=== PATIENT | female | born 1990 | race Caucasian/White ===

== ENCOUNTER 2024-11-25 08:33 | Emergency (ER) | payer OTHER ==
[~2024-11-25] VITALS: Ht 160 cm; Wt 73.0 kg
--- OUTSIDE RECORDS SUMMARY | ~2024-11-25 | XMS | Continuity of Care Document ---
Demographics + + + | Address | [address] | | | [place] [address] | + + + | Preferred Language | Unknown | + + + | Marital Status | unknown | + + + | Restorationist Affiliation | Unknown | + + + | Race | White | + + + | Ethnic Group | Not or | + + + Author + + + | Author | [facility] | + + + | Organization | [facility] | + + + | Address | [address] | | | [place] [address] | + + + | Phone | | + + + Care Team Providers + + + + | Care Personnel Analyst Name | Role | Phone | + + + + Unavailable | Unavailable | + + + + Unavailable | Unavailable | + + + + Allergies No information. Encounters No information. Functional Status No information. Immunizations No information. Medications + + + + | date | description | facility | + + + + | 2024-08-29 00:00 | Adderall 20 MG Oral Tablet | [facility] | | | | | + + + + | 2024-08-29 00:00 | amphetamine aspartate 5 MG | [facility] | | | / amphetamine sulfate 5 MG | | | | / dextroamphetamine | | | | saccharate 5 MG / | | | | dextroamphetamine sulfate 5 | | | | MG Oral Tablet [Adderall] | | + + + + Problems No information. Procedures + + + + | date | description | facility | + + + + | 2024-08-29 00:00 | Tobacco use assessed | [facility] | | | | | + + + + | 2024-08-29 00:00 | Controlling Blood | [facility] | | | Pressure; Most recent | | | | Systolic <130mm Hg | | + + + + | 2024-08-29 00:00 | Controlling BP; Most | [facility] | | | recent Diastolic BP < 80mm | | | | Hg | | + + + + Results/Labs No information. Social History + + + + | date | description | facility | + + + + | 2024-09-02 00:00 | Unknown if ever [facility] | | | | | + + + + Vital Signs + + + + + | date | measurement | value | units | + + + + + | 2024-08-29 00:00 | BMI | 31.9 | 1 | + + + + + | 2024-08-29 00:00 | BP_diastolic | 70 | mmHg | + + + + + | 2024-08-29 00:00 | BP_systolic | 118 | mmHg | + + + + + | 2024-08-29 00:00 | BSA | 1.8 | 1 | + + + + + | 2024-08-29 00:00 | heart_rate | 1|1| | completed | + + + + + | 2024-08-29 00:00 | heart_rate | 88 | /min | + + + + + | 2024-08-29 00:00 | height_metric | 160.02 | cm | + + + + + | 2024-08-29 00:00 | height_standard | 63 | in | + + + + + | 2024-08-29 00:00 | o2_saturation | 95 | % | + + + + + | 2024-08-29 00:00 | temperature_metric | 36.83 | C | | | | | | + + + + + | 2024-08-29 00:00 | | 98.3 | F | | | temperature_standar | | | | | d | | | + + + + + | 2024-08-29 00:00 | weight_metric | 81.74 | kg | + + + + + | 2024-08-29 00:00 | weight_standard | 180.2 | lb | + + + + +"
[~2024-11-25 08:33] MED LIST: ADDERALL 20 MG20 MG PO; BENADRYL ALLERG25 MG PO
[2024-11-25 08:57] LABS: BILIRUBIN, URINE NEGATIVE (negative); BLOOD/HGB, URINE LARGE (Negative); KETONE, URINE NEGATIVE (Negative); LEUK ESTERASE, URINE NEGATIVE (negative); NITRITE, URINE POSITIVE (negative)
[2024-11-25] MEDS ORDERED: PHENAZOPYRIDINE HCL 100 MG TAB PO ONE (09:00)
[2024-11-25] MEDS ORDERED: IBUPROFEN 600 MG TAB PO ONE (09:00)
[2024-11-25 09:06] LABS: BACTERIA, URINE 2+ /hpf (negative); CASTS, URINE NONE SEEN \\lpf; COLLECTION TYPE, URINE CLEAN CATCH; CRYSTALS, URINE NONE SEEN (0-1+); RED BLOOD CELLS, URINE >50 /hpf (0-5); REFLEX CULTURE, URINE Yes (No)
[2024-11-25] MEDS ORDERED: MACROBID 100 M100 MG PO (09:50)
[2024-11-25] MEDS ORDERED: NITROFURANTOIN MONOHYD MACROCR 100 MG CAP PO ONE (10:00)
[2024-11-25 10:04] VITALS: BP 99/57
[2024-11-25 10:38] LABS: N. GONORRRHOEAE BY PCR NOT DETECTED (NOT DETECT)
== END 2024-11-25 10:06 | disposition home or self-care (01) ==
LOC: ED 08:33
PROVIDERS: Emergency Medicine
DX: N39.0 Urinary tract infection, site not specified (principal); Z79.899 Other long term (current) drug therapy
CPT/HCPCS: 81001; 84703; 87088; 99283; A9270

== ENCOUNTER 2025-03-23 10:25 | Emergency (ER) | payer BC, OTHER ==
[~2025-03-23] VITALS: Ht 160 cm; Wt 73.0 kg
[~2025-03-23 10:25] MED LIST changes: +MACROBID 100 M100 MG PO
[2025-03-23] MEDS ORDERED: diphenhydrAMINE HCL 50 MG CAP PO ONE (11:15)
[2025-03-23] MEDS ORDERED: FAMOTIDINE 20 MG TAB PO ONE (11:15)
[2025-03-23 11:33] VITALS: BP 133/115
== END 2025-03-23 11:33 | disposition home or self-care (01) ==
LOC: ED 10:25
DX: L50.9 Urticaria, unspecified (principal)
CPT/HCPCS: 99282; Q0163

== ENCOUNTER 2025-05-10 09:21 | Emergency (ER) | payer BC, OTHER ==
[~2025-05-10] VITALS: Ht 160 cm; Wt 78.0 kg
[~2025-05-10 09:21] MED LIST changes: +PREDNISONE20 MG PO; +SINGULAIR10 MG PO; +ZYRTEC10 M3 PO
[2025-05-10] MEDS ORDERED: predniSONE 20 MG TAB PO ONE (10:30)
[2025-05-10] MEDS ORDERED: HYDROXYZINE HCL25 MG PO (11:21)
[2025-05-10] MEDS ORDERED: METHYLPREDNISOLO4 M1 PO (11:21)
[2025-05-10 11:47] VITALS: BP 105/49
--- NOTE | 2025-05-11 19:16 | EKG ---
[facility] [address] [facility] [address] [place] [address] Signed Normal sinus rhythm Anterolateral infarct , age undetermined Abnormal ECG When compared with ECG of 25-JUN-2024 18:36, Anterolateral infarct is now present Confirmed by Surendra Genao MD ([id number]) on 05/11/2025 7:16:11 PM Electronically Signed By: SURENDRA GENAO MD 05/11/251915 PATIENT NAME: ELLEN FRANCO Electrocardiogram DATE OF : 86 PHYSICIAN: SURENDRA GENAO MD REPORT #: [id number] REPORT IS CONFIDENTIAL AND NOT TO BE RELEASED WITHOUT AUTHORIZATION
== END 2025-05-10 11:46 | disposition home or self-care (01) ==
LOC: ED 09:21
DX: L50.8 Other urticaria (principal); R07.89 Other chest pain; Z79.899 Other long term (current) drug therapy
CPT/HCPCS: 93005; 93010; 99283; J7512

== ENCOUNTER 2025-05-21 18:55 | Emergency (ER) | payer BC, OTHER ==
[~2025-05-21] VITALS: Ht 160 cm; Wt 79.2 kg
[~2025-05-21 18:55] MED LIST changes: +HYDROXYZINE HCL25 MG PO; +METHYLPREDNISOLO4 M1 PO
--- OUTSIDE RECORDS SUMMARY | 2025-05-21 19:02 | XMS ---
PreManage Notification: ELLEN FRANCO Security Window [place] Helper Events No recent Security Events currently on file CRITERIA MET - [facility] - 2 Visits in 30 Days CARE PROVIDERS -Alexandra- Dentist: Restaurant Crew Person [facility] PHONE: [phone] -, [facility] Dentist: Restaurant Crew Person [facility] PHONE: [phone] [facility] PHONE: [phone] Crystal has no Care Guidelines for this patient. E.[facility] VISIT COUNT (12 MO.) 6 [facility] TOTAL 6 NOTE: Visits indicate total known visits. ED/UCC VISIT TRACKING (12 MO.) 05/21/2025 18:55 [facility] [place] TYPE: Emergency COMPLAINT: - SKIN PROBLEM 05/10/2025 09:21 [facility] [place] TYPE: Emergency COMPLAINT: - HIVES,CHEST DISCOMFORT DIAGNOSES: - Other chest pain - Other carton and can supply supervisor (current) drug therapy - Other urticaria 04/06/2025 16:04 [facility] [place] TYPE: Emergency COMPLAINT: - EYE PROBLEM DIAGNOSES: - Other carton and can supply supervisor (current) drug therapy - Urticaria, unspecified 03/23/2025 10:26 [facility] [place] TYPE: Emergency COMPLAINT: - SKIN CONDITION DIAGNOSES: - Urticaria, unspecified 11/25/2024 08:33 [facility] [place] TYPE: Emergency COMPLAINT: - URINE PROBLEM DIAGNOSES: - Other assisted (current) drug therapy - Urgency of urination - Urinary tract infection, site not specified 06/25/2024 18:28 [facility] [place] TYPE: Emergency COMPLAINT: - CHEST PAIN DIAGNOSES: - Atherosclerotic heart disease of [place] coronary artery without angina pectoris - Chest pain, unspecified - Other chest pain - Other carton and can supply supervisor (current) drug therapy - Viral infection, unspecified INPATIENT VISIT TRACKING (12 MO.) No inpatient visits to display in this time frame [email or web address]
[2025-05-21] MEDS ORDERED: methylPREDNISolone 4 MG HOME.PACK PO ONE (20:00)
[2025-05-21] MEDS ORDERED: CETIRIZINE HCL10 MG PO (20:00)
[2025-05-21] MEDS ORDERED: CETIRIZINE HCL 10 MG TAB PO ONE (20:00)
[2025-05-21 20:11] VITALS: BP 121/76
== END 2025-05-21 20:14 | disposition home or self-care (01) ==
LOC: ED 18:55
DX: L50.9 Urticaria, unspecified (principal); Z79.899 Other long term (current) drug therapy
CPT/HCPCS: 99282

== ENCOUNTER 2025-06-29 14:35 | Emergency (ER) | payer BC, OTHER ==
[~2025-06-29] VITALS: Ht 160 cm; Wt 78.0 kg
--- OUTSIDE RECORDS SUMMARY | ~2025-06-29 | XMS | Continuity of Care Document ---
Demographics + + + | Address | [address] | | | [place] [address] | + + + | Preferred Language | Unknown | + + + | Marital Status | unknown | + + + | Muslim Affiliation | Unknown | + + + | Race | White | + + + | Ethnic Group | Not or | + + + Author + + + | Author | [facility] | + + + | Organization | [facility] | + + + | Address | [address] | | | [place] [address] | + + + | Phone | | + + + Care Team Providers + + + + | Care Whale Fisherman Name | Role | Phone | + + + + Unavailable | Unavailable | + + + + Unavailable | Unavailable | + + + + Unavailable | Unavailable | + + + + Allergies No information. Encounters No information. Functional Status No information. Immunizations No information. Medications + + + + | date | description | facility | + + + + | 2025-04-06 00:00 | CETIRIZINE HCL | [facility] | | | | [facility] | + + + + | 2025-04-06 00:00 | [facility]CL [facility] | [facility] | [facility] | + + + + | 2025-05-21 00:00 | [facility] | | [facility] | [facility] | + + + + | (no date) | DIPHENHYDRAMINE HCL | [facility] | | | | [facility] | + + + + | (no date) | DIPHENHYDRAMINE HCL | [facility] | | | | [facility] | + + + + | 2025-04-06 00:00 | MONTELUKAST SODIUM | [facility] | | | [facility] | + + + + | 2025-04-06 00:00 | MONTELUKAST SODIUM | [facility] | | | [facility] | + + + + | 2025-05-10 00:00 | MONTELUKAST SODIUM | [facility] | | | | [facility] | + + + + | 2025-05-10 00:00 | MONTEERNESTINAKAST SODIUM | [facility] | | | | [facility] | + + + + | 2025-04-06 00:00 | predniSONE | [facility] | | | | [facility] | + + + + | 2025-04-06 00:00 | predniSONE | [facility] | | | | [facility] | + + + + | (no date) | AMPHET ASP/AMPHET/D-AMPHET | [facility] | | | | [facility] | + + + + | (no date) | AMPHET ASP/AMPHET/D-AMPHET | [facility] | | | [facility] | + + + + | 2025-05-10 00:00 | METHYLPREDNISOLONE | [facility] | | | | [facility] | + + + + | 2025-05-10 00:00 | METHYLPREDNISOLONE | [facility] | | | | [facility] | + + + + | 2025-05-10 00:00 | hydrOXYzine HCL | [facility] | | | | [facility] | + + + + | 2025-05-10 00:00 | hydrOXYzine HCL | [facility] | | | [facility] | + + + + Problems No information. Procedures No information. Results/Labs No information. Social History + + + + | date | description | facility | + + + + | (no date) | Unknown if ever smoked | [facility] | | | | [facility] | + + + + | (no date) | Unknown if ever smoked | [facility] | | | | [facility] | + + + + Vital Signs + + + +---------+ | date | measurement | value | units | + + + +---------+ | 2025-05-10 00:00 | BMI | 30.5 | kg/m2 | + + + +---------+ | 2025-05-10 00:00 | BP_diastolic | 49 | mmHg | + + + +---------+ | 2025-05-10 00:00 | BP_systolic | 105 | mmHg | + + + +---------+ | 2025-05-10 00:00 | heart_rate | 82 | /min | + + + +---------+ | 2025-05-10 00:00 | height_metric | 160.02 | cm | + + + +---------+ | 2025-05-10 00:00 | height_standard | 63 | in | + + + +---------+ | 2025-05-10 00:00 | o2_saturation | 97 | % | + + + +---------+ | 2025-05-10 00:00 | respiration_rate | 16 | /min | + + + +---------+ | 2025-05-10 00:00 | | 98.6 | F | | | temperature_standar | | | | | d | | | + + + +---------+ | 2025-05-10 00:00 | weight_metric | 78.001 | kg | + + + +---------+ | 2025-05-10 00:00 | weight_standard | 171.962 | lb | + + + +---------+ | 2025-05-21 00:00 | BMI | 30.9 | kg/m2 | + + + +---------+ | 2025-05-21 00:00 | BP_diastolic | 76 | mmHg | + + + +---------+ | 2025-05-21 00:00 | BP_systolic | 121 | mmHg | + + + +---------+ | 2025-05-21 00:00 | heart_rate | 67 | /min | + + + +---------+ | 2025-05-21 00:00 | height_metric | 160.02 | cm | + + + +---------+ | 2025-05-21 00:00 | height_standard | 63 | in | + + + +---------+ | 2025-05-21 00:00 | o2_saturation | 99 | % | + + + +---------+ | 2025-05-21 00:00 | respiration_rate | 17 | /min | + + + +---------+ | 2025-05-21 00:00 | | 97.36 | F | | | temperature_standar | | | | | d | | | + + + +---------+ | 2025-05-21 00:00 | weight_metric | 79.2 | kg | + + + +---------+ | 2025-05-21 00:00 | weight_standard | 174.606 | lb | + + + +---------+"
[~2025-06-29 14:35] MED LIST changes: +CETIRIZINE HCL10 MG PO
[2025-06-29 15:44] LABS: BASOPHILS 0.3 % (0.1-1.2); EOSINOPHILS 1.4 % (0.7-5.8); LYMPHOCYTES 36.1 % (19.3-51.7); MCH 29.7 PG (25.6-32.2); MCHC 33.3 g/dL (32.2-35.5); MCV 89.2 fL (79.4-94.8); MONOCYTES 7.4 % (4.7-12.5); NEUTROPHILS 54.8 % (34.0-71.1); RBC 4.34 M/uL (3.93-5.22)
[2025-06-29 16:02] LABS: ALT (SGPT) 11 U/L (14-59); AST (SGOT) 8 U/L (15-37); GLOMERULAR FILTRATION RATE,EST 113 mL/min (>60); PROTEIN, TOTAL 6.0 g/dL (6.4-8.2); UREA NITROGEN 21 mg/dL (7-18)
[2025-06-29] MEDS ORDERED: DEXTROAMP-AMPHE20 MG PO (16:47)
[2025-06-29 17:54] VITALS: BP 96/62
--- NOTE | 2025-06-30 21:24 | EKG ---
[facility] [address] [place] [address] Signed Normal sinus rhythm Incomplete right bundle branch block Borderline ECG When compared with ECG of 10-MAY-2025 11:16, Incomplete right bundle branch block is now present Criteria for Anterior infarct are no longer present Criteria for Anterolateral infarct are no longer present Nonspecific T wave abnormality no longer evident in Lateral leads Confirmed by Buster James MD () on 06/30/2025 9:23:56 PM Electronically Signed By: BUSTER JAMES MD 06/30/252123 PATIENT NAME: ELLEN FRANCO Electrocardiogram DATE OF : 86 PHYSICIAN: BUSTER JAMES MD REPORT #: [id number] REPORT IS CONFIDENTIAL AND NOT TO BE RELEASED WITHOUT AUTHORIZATION
== END 2025-06-29 17:55 | disposition home or self-care (01) ==
LOC: ED 14:35
PROVIDERS: Emergency Medicine
DX: R07.9 Chest pain, unspecified (principal); F17.290 Nicotine dependence, other tobacco product, uncomplicated; Z79.899 Other long term (current) drug therapy
CPT/HCPCS: 36415; 71260; 80053; 84484; 84703; 85025; 85379; 99285-25; Q9967